=== PATIENT | female | born 1980 | race Caucasian/White ===

== ENCOUNTER 2017-03-03 14:30 | Outpatient (RCR) | payer MEDICARE, MEDICAID ==
[~2017-03-03 14:30] MED LIST: NORCO 325 MG-51 TAB PO
== END 2017-03-15 15:26 | disposition home or self-care (01) ==
LOC: WSPT 14:30
DX: M25.562 Pain in left knee (principal)
CPT/HCPCS: G8978-GP; G8979-GP; G8980-GP

== ENCOUNTER 2017-03-24 01:22 | Emergency (ER) | payer MEDICARE, MEDICAID ==
[~2017-03-24] VITALS: Ht 175.3 cm; Wt 169.5 kg
[2017-03-24 02:03] LABS: BASO # 0.1 (0.0-0.2); BASO % 0.5 % (0.0-2.0); EOS # 0.1 (0.0-0.7); EOS % 1.1 % (0-4.0); GRAN # 6.1 (1.4-6.5); GRAN % 61.4 % (42.2-75.2); HEMOGLOBIN 12.5 g/dl (12.5-16.0); LYMPH # 3.3 (1.2-3.4); LYMPH % 33.1 % (20.0-51.0); MEAN CELL VOLUME 85 fl (80.0-100.0); MEAN CORPUSCULAR HEMOGLOBIN 27 pg (27.0-31.0); MEAN CORPUSCULAR HGB CONC 31 g/dl (33.0-37.0); MEAN PLATELET VOLUME 10.8 fl (7.4-10.4); MONO # 0.4 (0.1-0.6); MONO % 3.8 % (1.7-9.3); PLATELET COUNT 247 K/mm3 (130-400); RED BLOOD COUNT 4.71 M/mm3 (4.10-5.30); REDCELL DISTRIBUTION WIDTH-CV 14.6 % (11.5-14.5)
[2017-03-24 02:16] LABS: ALBUMIN 3.9 gm/dL (3.5-5.0); BILIRUBIN,TOTAL 0.5 mg/dL (0.0-1.0); CALCIUM 8.9 mg/dL (8.4-10.2); CREATININE, serum 0.88 mg/dL (0.52-1.25); POTASSIUM 3.7 mmol/L (3.4-5.0); TOTAL PROTEIN 7.3 gm/dL (6.4-8.2)
[2017-03-24] MEDS ORDERED: AMBIEN 10MG10 MG PO (02:20)
[2017-03-24] MEDS ORDERED: PHENERGAN 25 TA25 MG PO (02:21)
[2017-03-24] MEDS ORDERED: NORVASC 10MG10 MG PO (02:21)
[2017-03-24] MEDS ORDERED: PREVACID 15MG15 M1 PO (02:22)
[2017-03-24] MEDS ORDERED: NEURONTIN300 MG/CAP PO (02:23)
[2017-03-24] MEDS ORDERED: PROZAC40 MG PO (02:28)
[2017-03-24] MEDS ORDERED: ROBAXIN 50500 MG/TAB PO (02:28)
[2017-03-24] MEDS ORDERED: MELATONIN5 M1 PO (02:29)
[2017-03-24] MEDS ORDERED: GLUCOPHAGE1000 MG PO (02:29)
[2017-03-24] MEDS ORDERED: RELAFEN750 MG PO (02:30)
[2017-03-24] MEDS ORDERED: BUSPAR DIVIDOSE15 MG PO (02:30)
[2017-03-24] MEDS ORDERED: REQUIP2 MG PO (02:30)
[2017-03-24] MEDS ORDERED: ESTRACE2 MG PO (02:31)
[2017-03-24] MEDS ORDERED: COZAAR100 MG PO (02:31)
[2017-03-24] MEDS ORDERED: INDERAL40 MG PO (02:31)
[2017-03-24] MEDS ORDERED: SYNTHROID0.125 MG/T PO (02:32)
[2017-03-24] MEDS ORDERED: XANAX .25M0.25 MG/TA PO (02:40)
[2017-03-24] MEDS ORDERED: TOPAMAX50 MG PO (02:42)
[2017-03-24] MEDS ORDERED: SEROQUEL50 MG PO (02:43)
[2017-03-24] MEDS ORDERED: LASIX 20MG TABL20 MG PO (02:45)
[2017-03-24] MEDS ORDERED: LOVAZA1 GM PO (02:45)
[2017-03-24 02:52] LABS: PH 7 (5-8); URINE APPEARANCE Hazy; URINE BACTERIA Rare /hpf; URINE BILIRUBIN Positive (NEGATIVE); URINE BLOOD Negative (NEGATIVE); URINE COLOR Yellow; URINE GLUCOSE Negative (NEGATIVE); URINE KETONE Negative (NEGATIVE); URINE RBC 0-2 /hpf; URINE UROBILINOGEN Negative (NEGATIVE); URINE WBC 0-2 /hpf
[2017-03-24 03:35] VITALS: TEMP 97.8
[2017-03-24] MEDS ORDERED: ULTRAM 50MG TAB50 MG PO (04:25)
[2017-03-24] MEDS ORDERED: FLEXERIL 1010 MG/TAB PO (04:25)
[2017-03-24 04:48] VITALS: BP 97/66; PULSE 72
== END 2017-03-24 04:55 | disposition home or self-care (01) ==
LOC: COL.ER 01:22
PROVIDERS: Emergency Medicine
DX: M54.9 Dorsalgia, unspecified (principal); E11.9 Type 2 diabetes mellitus without complications; I10 Essential (primary) hypertension; E07.9 Disorder of thyroid, unspecified; J44.9 Chronic obstructive pulmonary disease, unspecified; Z79.84 Long term (current) use of oral hypoglycemic drugs; Z87.891 Personal history of nicotine dependence
CPT/HCPCS: J1170; J2405; J7030